=== PATIENT | female | born 1940 | race Caucasian/White ===

== ENCOUNTER 2021-04-03 22:36 | Inpatient (IN) ==
[2021-04-03] MEDS ORDERED: NS 0.9% 1000 ml BAG 1,000 ML IV ONE (22:39)
[2021-04-03] MEDS ORDERED: Iodixanol (CONTRAST) 320 MG/ML 100 ML SDV IV ONE (23:06)
[2021-04-03 23:20] LABS: ALT 23 U/L (7-52); Albumin 3.7 g/dL (3.2-5.2); Alkaline Phosphatase 91 U/L (35-149); Blood Urea Nitrogen 22 mg/dL (6-24); CO2 Carbon Dioxide 20 mmol/L (22-32); Calcium 10.3 mg/dL (8.6-10.3); Chloride 96 mmol/L (101-111); Cholesterol 159 mg/dL; Globulin 3.8 g/dL (2-4); Glucose 353 mg/dL (70-100); HDL Cholesterol 75.2 mg/dL; LDL Cholesterol 61 mg/dL; Sodium 130 mmol/L (135-145); Total Protein 7.5 g/dL (6.4-8.9); Triglycerides 115 mg/dL; eGFR CKD-EPI 44.1 (>60)
[2021-04-03 23:24] LABS: Troponin I 0.06 ng/mL (<0.03)
[2021-04-03 23:28] LABS: ABS Basophils 0.1 10^3/ul (0-0.2); ABS Lymphocytes 0.7 10^3/ul (1.0-4.8); ABS Monocytes 0.6 10^3/ul (0-0.8); Eosinophil % 0.1 %; Hematocrit 40 % (35-47); Hemoglobin 13.2 g/dL (12.0-16.0); Lymphocyte % 4.1 %; Mean Corpuscular HGB Conc 33 g/dL (31-36); Mean Corpuscular Hemoglobin 29 pg (27-31); Mean Corpuscular Volume 89 fL (80-97); Mean Platelet Volume 7.7 fL (7.4-10.4); Platelet Count 305 10^3/uL (150-450); Red Blood Count 4.55 10^6 /uL (3.70-4.87); Red Cell Distribution Width 15 % (10-15); White Blood Count 16.4 10^3/uL (3.5-10.8)
[2021-04-03 23:38] LABS: Anion Gap 14 mmol/L (2-11)
[2021-04-04 01:57] LABS: Potassium Redraw 4.6 mmol/L (3.5-5.0)
[2021-04-04 02:29] LABS: Urine Appearance Cloudy; Urine Bilirubin Negative (Negative); Urine Blood 3+ (Negative); Urine Color Yellow; Urine Glucose 3+(>=500 mg/dL) (Negative); Urine Ketones 1+ (Negative); Urine Nitrite Negative (Negative); Urine Protein 1+(30 mg/dL) (Negative); Urine Specific Gravity 1.042 (1.002-1.030); Urine Urobilinogen Negative (Negative)
[2021-04-04 02:33] LABS: Urine Bacteria 1+ (Absent); Urine Red Blood Cell 3+(>10/hpf) (Absent); Urine Squamous Epithelial Cell Present (Absent); Urine White Blood Cell 3+(>20/hpf) (Absent)
[2021-04-04] MEDS ORDERED: Dextrose 50% Syringe 50 ml 25 GM/50 ML SYRINGE IV PUSH PRN (05:35)
[2021-04-04 05:52] LABS: C Reactive Protein 115.92 mg/L (<8.01)
[2021-04-04] MEDS ORDERED: cefTRIAXone 1 gm/50 mL NS BAG 1 GM/50 ML BAG IVPB SCH (06:00)
[2021-04-04] MEDS ORDERED: Cefepime 2 GM IV - ED ONCE IV ONE (06:00)
[2021-04-04] MEDS ORDERED: Iodixanol (CONTRAST) 320 MG/ML 100 ML SDV IV ONE (06:28)
[2021-04-04] MEDS ORDERED: metroNIDAZOLE IV 500 MG/100ML - ED ONCE IVPB ONE (06:30)
[2021-04-04] MEDS: Enoxaparin 30 MG/0.3 ML SYR SUBCUT SCH (07:18)
[2021-04-04 07:59] LABS: Rapid COVID-19 Molecular Undetected (Undetected)
[2021-04-04] MEDS ORDERED: Senna TAB 8.6 mg TAB PO PRN (08:32)
[2021-04-04] MEDS ORDERED: Senna TAB 8.6 mg TAB PO ONE (08:32)
[2021-04-04] MEDS ORDERED: NS 0.9% IV ONE (09:30)
[2021-04-04] MEDS: cefTRIAXone 1 gm/50 mL NS BAG 1 GM/50 ML BAG IVPB SCH (09:44)
[2021-04-04] MEDS: Polyethylene Glycol 3350 17 GM PACKET PO SCH (09:44)
[2021-04-04] MEDS ORDERED: NS 0.9% 1000 ml BAG 1,000 ML IV SCH ×2 (11:00→16:30)
[2021-04-04 12:02] LABS: Troponin I 0.22 ng/mL (<0.03)
[2021-04-04 16:17] LABS: Troponin I 0.14 ng/mL (<0.03)
[2021-04-04] MEDS: INSULIN GLARGINE SUBCUT SCH (18:13)
[2021-04-04] MEDS: LIXISENATIDE SUBCUT SCH (18:13)
[2021-04-04] MEDS ORDERED: Insulin GLARGINE 100 un/ml 10 ml VIAL SUBCUT SCH (21:00)
[2021-04-04] MEDS: Ondansetron 4 mg VIAL 2 MG/ML 2 ml VIAL IV PRN (21:52)
[2021-04-05] MEDS ORDERED: Calcium Carb (TUMS) 500 mg CHEW TAB PO ONE (00:26)
[2021-04-05 05:07] LABS: ABS Lymphocytes 0.5 10^3/ul (1.0-4.8); ABS Monocytes 0.6 10^3/ul (0-0.8); ABS Neutrophils 6.6 10^3/ul (1.5-7.7); Eosinophil % 0.1 %; Hematocrit 37 % (35-47); Hemoglobin 12.4 g/dL (12.0-16.0); Mean Corpuscular HGB Conc 33 g/dL (31-36); Mean Corpuscular Hemoglobin 29 pg (27-31); Mean Corpuscular Volume 88 fL (80-97); Mean Platelet Volume 7.4 fL (7.4-10.4); Platelet Count 231 10^3/uL (150-450); Red Blood Count 4.24 10^6 /uL (3.70-4.87); Red Cell Distribution Width 15 % (10-15); White Blood Count 7.8 10^3/uL (3.5-10.8)
[2021-04-05 05:23] LABS: Calcium 9.3 mg/dL (8.6-10.3); Magnesium 1.5 mg/dL (1.9-2.7); Potassium 3.8 mmol/L (3.5-5.0); eGFR CKD-EPI 68.8 (>60)
[2021-04-05] MEDS: Enoxaparin 30 MG/0.3 ML SYR SUBCUT SCH (06:08)
[2021-04-05] MEDS: Ondansetron 4 mg VIAL 2 MG/ML 2 ml VIAL IV PRN ×2 (06:32→14:47)
[2021-04-05] MEDS ORDERED: Magnesium Sulf 4 GM/100 ML IV 4,000 MG/100 ML BAG IVPB ONE (06:34)
[2021-04-05] MEDS ORDERED: Perflutren Lipid Microsphere 3 ML VIAL ONE (09:12)
[2021-04-05] MEDS: Calcium Carb (TUMS) 500 mg CHEW TAB PO PRN ×3 (09:16→20:13)
[2021-04-05] MEDS ORDERED: Iodixanol (CONTRAST) 320 MG/ML 100 ML SDV IV SCH (10:42)
[2021-04-05] MEDS: cefTRIAXone 1 gm/50 mL NS BAG 1 GM/50 ML BAG IVPB SCH (11:14)
[2021-04-05] MEDS: Polyethylene Glycol 3350 17 GM PACKET PO SCH (14:48)
[2021-04-05] MEDS ORDERED: Morphine 2 MG/ML SYRINGE IV PRN (15:32)
[2021-04-05] MEDS: INSULIN GLARGINE SUBCUT SCH (17:35)
[2021-04-05] MEDS: LIXISENATIDE SUBCUT SCH (17:35)
[2021-04-05] MEDS: Insulin GLARGINE 100 un/ml 10 ml VIAL SUBCUT SCH (21:02)
[2021-04-06] MEDS: Calcium Carb (TUMS) 500 mg CHEW TAB PO PRN ×3 (00:34→09:45)
[2021-04-06] MEDS: Enoxaparin 30 MG/0.3 ML SYR SUBCUT SCH (05:49)
[2021-04-06 06:17] LABS: Calcium 9.6 mg/dL (8.6-10.3); Magnesium 2.1 mg/dL (1.9-2.7); Potassium 4.4 mmol/L (3.5-5.0); eGFR CKD-EPI 49.4 (>60)
[2021-04-06] MEDS: cefTRIAXone 1 gm/50 mL NS BAG 1 GM/50 ML BAG IVPB SCH (09:44)
[2021-04-06] MEDS: Polyethylene Glycol 3350 17 GM PACKET PO SCH (09:45)
[2021-04-06] MEDS ORDERED: Dextran 70/Hypromellose Tears Eye Drops 15 ml BTL (for Artificials Tears) BOTH EYES PRN (13:12)
[2021-04-06] MEDS ORDERED: Lactated Ringers 1000 ml BAG 1,000 ML IV SCH (22:00)
[2021-04-06] MEDS: Insulin GLARGINE 100 un/ml 10 ml VIAL SUBCUT SCH (22:00)
[2021-04-07 05:28] LABS: Hematocrit 36 % (35-47); Mean Corpuscular HGB Conc 33 g/dL (31-36); Mean Corpuscular Hemoglobin 30 pg (27-31); Mean Corpuscular Volume 88 fL (80-97); Mean Platelet Volume 6.9 fL (7.4-10.4); Platelet Count 298 10^3/uL (150-450); Red Blood Count 4.08 10^6 /uL (3.70-4.87); Red Cell Distribution Width 15 % (10-15); White Blood Count 5.9 10^3/uL (3.5-10.8)
[2021-04-07] MEDS: Enoxaparin 30 MG/0.3 ML SYR SUBCUT SCH (06:33)
[2021-04-07 08:57] LABS: Calcium 9.4 mg/dL (8.6-10.3); Potassium 3.7 mmol/L (3.5-5.0); eGFR CKD-EPI 40.6 (>60)
[2021-04-07] MEDS: Polyethylene Glycol 3350 17 GM PACKET PO SCH (08:57)
[2021-04-07] MEDS: cefTRIAXone 1 gm/50 mL NS BAG 1 GM/50 ML BAG IVPB SCH (10:34)
[2021-04-07] MEDS: Insulin GLARGINE 100 un/ml 10 ml VIAL SUBCUT SCH (20:25)
[2021-04-08] MEDS: Enoxaparin 30 MG/0.3 ML SYR SUBCUT SCH (05:51)
[2021-04-08 07:13] LABS: Calcium 9.3 mg/dL (8.6-10.3); Potassium 3.8 mmol/L (3.5-5.0); eGFR CKD-EPI 46.9 (>60)
[2021-04-08] MEDS: Polyethylene Glycol 3350 17 GM PACKET PO SCH (09:02)
[2021-04-08] MEDS: cefTRIAXone 1 gm/50 mL NS BAG 1 GM/50 ML BAG IVPB SCH (09:37)
[2021-04-08 11:29] VITALS: BP 118/53
== END 2021-04-08 13:40 | DRG 871 ==
LOC: ED 22:36 → SUATTDRO 04-04 05:50 → EDHOLD 04-04 05:50 → SSU 04-04 06:36
PROVIDERS: ADMIT Internal Medicine; ATTEND Internal Medicine